=== PATIENT | female | born 1940 | race Caucasian/White ===

== ENCOUNTER 2023-06-19 08:42 | Emergency (ER) | payer BC ==
[~2023-06-19] VITALS: Ht 162.6 cm; Wt 81.6 kg
[~2023-06-19 08:42] MED LIST: ALBU2.5V7 INH; AMLO5TAB4 PO; DM/P240L8 PO; LORA10TA68 PO; TYC3 PO; [UNRECOGNIZED DRUG - OTHER] PO; [UNRECOGNIZED DRUG - OTHER] TP
[2023-06-19 09:00] VITALS: BP_SYST 166; PULSE 82; RESP 18; TEMP 98; O2SAT 100
[2023-06-19 09:38] LABS: BASOPHILS % (AUTO) 0.1 % (0.0-2.0); EOSINOPHILS % (AUTO) 0.2 % (0.0-4.0); HEMATOCRIT 34.4 % (36-48); HEMOGLOBIN 11.8 g/dL (12.0-16.0); LYMPHOCYTES # (AUTO) 0.7 K/uL (1.0-5.5); LYMPHOCYTES % (AUTO) 10.1 % (20.5-51.5); MEAN CORPUSCULAR HEMOGLOBIN 32 pg (27-31); MEAN CORPUSCULAR HGB CONC 34 % (32-36); MEAN CORPUSCULAR VOLUME 93 fL (79.0-98.0); MONOCYTES # (AUTO) 0.3 K/uL (0.0-1.0); MONOCYTES % (AUTO) 4.5 % (1.7-9.3); NEUTROPHILS # (AUTO) 5.7 K/uL (1.8-7.7); NEUTROPHILS % (AUTO) 85.1 % (40.0-70.0); PLATELET COUNT (AUTO) 283 K/uL (130-430); RED BLOOD CELL COUNT(AUTO) 3.69 MIL/uL (4.2-6.2); WHITE BLOOD COUNT (AUTO) 6.7 K/uL (4.8-10.8)
[2023-06-19 09:55] LABS: ANION GAP 10 (5-15); CALCIUM 8.9 mg/dL (8.4-11.0); CHLORIDE 94 mmol/L (98-107); CREATININE 0.74 mg/dL (0.55-1.30); GLUCOSE 111 mg/dL (74-106); UREA NITROGEN, BLOOD 12 mg/dL (8-21)
[2023-06-19 10:02] LABS: ALANINE AMINOTRANSFERASE 16 U/L (12-78); ASPARTATE AMINOTRANSFERASE 17 U/L (10-37); TOTAL BILIRUBIN 0.7 mg/dL (0.0-1.0)
[2023-06-19] MEDS ORDERED: IPRATROPIUM/ALBUTEROL SULFATE 3 ML AMPUL.NEB (DUONEB) INH ONE (10:45)
[2023-06-19] MEDS ORDERED: NACL 0.9% 1,000 ML IV ONE (10:45)
[2023-06-19] MEDS ORDERED: KETOROLAC TROMETHAMINE 30 MG VIAL IVP ONE (11:45)
[2023-06-19] MEDS ORDERED: methylPREDNISolone SOD SUCC/PF 62.5 MG/ML VIAL IVP ONE (11:45)
[2023-06-19 11:54] VITALS: BP_SYST 166; PULSE 82; RESP 18; TEMP 98; O2SAT 98
[2023-06-19] MEDS ORDERED: PRED20TA PO (12:21)
[2023-06-19] MEDS ORDERED: ALBMDI INH (12:21)
[2023-06-19] MEDS ORDERED: NEU300 PO (13:01)
[2023-06-19] MEDS ORDERED: LIDOINT TP (13:01)
[2023-06-19] MEDS ORDERED: CYCL10TA24 PO (13:01)
[2023-06-19] MEDS ORDERED: ACET-2634 PO (13:01)
== END 2023-06-19 14:19 | disposition home or self-care (01) ==
LOC: SED 08:42
DX: J45.901 Unspecified asthma with (acute) exacerbation (principal); D64.9 Anemia, unspecified; R06.00 Dyspnea, unspecified; R06.02 Shortness of breath; E87.1 Hypo-osmolality and hyponatremia; E87.8 Other disorders of electrolyte and fluid balance, not elsewhere classified; M54.30 Sciatica, unspecified side; I10 Essential (primary) hypertension; Z88.0 Allergy status to penicillin; Z88.6 Allergy status to analgesic agent; Z79.899 Other long term (current) drug therapy
CPT/HCPCS: 99285; 96374; 71045; 96361; 96375; 80053; 83880; 85025; 85379; 84484; 36415; 93005; 94640; 94760; J1885; J2930; J7030